=== PATIENT | male | born 1975 | race Two or more races ===

== ENCOUNTER 2016-11-20 08:59 | Inpatient (IN) | payer OTHER ==
[~2016-11-20] VITALS: Ht 188 cm; Wt 121.6 kg
[2016-11-20] MEDS ORDERED: DILANTIN PO (09:03)
[2016-11-20] MEDS ORDERED: KETOROLAC 30MG/ML VIAL IV STA (10:42)
[2016-11-20 10:51] LABS: BASOPHILS % 0.3 % (0.0-2.0); EOSINOPHILS % 2.3 % (0.0-5.0); HEMATOCRIT. 45.2 % (42.0-52.0); MEAN CORPUSCULAR HEMOGLOBIN 29.6 pg (28.0-32.0); MEAN CORPUSCULAR VOLUME 88.9 fL (80.0-94.0); MEAN PLATELET VOLUME 10.1 fl (7.4-10.4); MONOCYTES % 6.8 % (2.0-8.0); NEUTROPHILS % 58.6 % (40.0-76.0); PLATELET 254 x1000/uL (130-400); RED BLOOD CELL COUNT 5.08 mill/uL (4.7-6.1); RED CELL DISTRIBUTION WIDTH 14.2 % (11.6-14.6)
[2016-11-20 11:06] LABS: D-DIMER 0.53 mg/L FEU (<0.50); INR 1.1; PARTIAL THROMBOPLASTIN TIME 26.6 sec (23.4-31.0); PROTHROMBIN TIME 11.1 sec (9.4-11.6)
[2016-11-20] MEDS ORDERED: IOHEXOL-350 100 ML BOTTLE ONE (11:08)
[2016-11-20] MEDS ORDERED: SODIUM CHLORIDE 0.9% 10ML VIAL ONE (11:08)
[2016-11-20 11:12] LABS: CARBON DIOXIDE 30 mEq/L (21-32); CHLORIDE 105 mEq/L (98-107); ETHANOL BLOOD < 10 mg/dL; TROPONIN I < 0.02 ng/mL (0.00-0.04)
[2016-11-20 11:17] LABS: *AMPHETAMINES SCREEN URINE NEGATIVE (NEGATIVE); *BARBITURATES SCREEN URINE PRESUMTIVE POSITIVE (NEGATIVE); *BENZODIAZEPINES SCREEN URINE NEGATIVE (NEGATIVE); *COCAINE SCREEN URINE NEGATIVE (NEGATIVE); CANNABINOID URINE SCREEN NEGATIVE (NEGATIVE); METHADONE URINE SCREEN NEGATIVE (NEGATIVE); OPIATES URINE SCREEN NEGATIVE (NEGATIVE); PHENCYCLIDINE URINE SCREEN NEGATIVE (NEGATIVE)
[2016-11-20 16:05] VITALS: BP 122/80
[2016-11-20] MEDS ORDERED: ONDANSETRON HCL 4MG/2ML VIAL IV PRN (16:15)
[2016-11-20] MEDS ORDERED: DOCUSATE SODIUM 100MG CAPSULE PO PRN (16:15)
[2016-11-20] MEDS ORDERED: ACETAMINOPHEN 325MG TABLET PO PRN (16:15)
[2016-11-20] MEDS ORDERED: PHEN100C4 PO (16:23)
[2016-11-20] MEDS ORDERED: SIMV40TA5 PO (16:24)
[2016-11-20] MEDS ORDERED: PRIM250T33 PO (16:24)
[2016-11-20] MEDS ORDERED: OMEP40CA34 PO (16:25)
[2016-11-20] MEDS ORDERED: MEDICATION NOT ON FORMULARY EA (Simvastatin 40 MG) PO SCH (17:00)
[2016-11-20] MEDS: PHENYTOIN SODIUM EXTENDED 100MG CAPSULE PO SCH (18:18)
[2016-11-20 20:00] VITALS: BP 133/81
[2016-11-20] MEDS: ENOXAPARIN 30MG/0.3ML SYR SUBCUT SCH (21:00)
[2016-11-20] MEDS: HYDROCODONE/ACETAMINOPHEN 5/325MG TABLET PO PRN (21:52)
[2016-11-20] MEDS: ATORVASTATIN CALCIUM 20MG TABLET PO SCH (21:59)
[2016-11-20 23:41] LABS: CREATINE KINASE 68 IU/L (39-308); TROPONIN I < 0.02 ng/mL (0.00-0.04)
[2016-11-21] VITALS (7 sets, daily range): BP systolic 101–130; BP diastolic 65–80
[2016-11-21 05:58] LABS: BASOPHILS % 0.3 % (0.0-2.0); EOSINOPHILS % 2.4 % (0.0-5.0); HEMATOCRIT. 41.6 % (42.0-52.0); HEMOGLOBIN. 14.1 g/dL (14.0-18.0); LYMPHOCYTES % 32.8 % (20.0-50.0); MEAN CORPUSCULAR HEMOGLOBIN 30.2 pg (28.0-32.0); MEAN CORPUSCULAR VOLUME 88.7 fL (80.0-94.0); MEAN PLATELET VOLUME 9.8 fl (7.4-10.4); MONOCYTES % 7.7 % (2.0-8.0); NEUTROPHILS % 56.8 % (40.0-76.0); PLATELET 226 x1000/uL (130-400); RED BLOOD CELL COUNT 4.69 mill/uL (4.7-6.1); RED CELL DISTRIBUTION WIDTH 14.1 % (11.6-14.6)
[2016-11-21 06:54] LABS: CHLORIDE 103 mEq/L (98-107)
[2016-11-21 07:05] LABS: CARBON DIOXIDE 25 mEq/L (21-32); CREATINE KINASE 62 IU/L (39-308); HDL CHOLESTEROL 37 mg/dL (40-59); LDL CHOLESTEROL 144 mg/dL (5-100); TROPONIN I < 0.02 ng/mL (0.00-0.04)
[2016-11-21] MEDS ORDERED: OMEPRAZOLE 20MG CAPSULE EXTENDED RELEASE PO SCH (07:40)
[2016-11-21] MEDS: HYDROCODONE/ACETAMINOPHEN 5/325MG TABLET PO PRN (08:23)
[2016-11-21] MEDS: ENOXAPARIN 30MG/0.3ML SYR SUBCUT SCH ×2 (08:24→20:57)
[2016-11-21] MEDS ORDERED: MEDICATION NOT ON FORMULARY EA (Omeprazole 40 MG) PO SCH (09:00)
[2016-11-21] MEDS ORDERED: PHENYTOIN SODIUM EXTENDED 100MG CAPSULE PO SCH (09:00)
[2016-11-21] MEDS ORDERED: ASPIRIN 81MG EC TABLET PO SCH (09:00)
[2016-11-21] MEDS ORDERED: DILANTIN 300 MG PO SCH (09:00)
[2016-11-21] MEDS ORDERED: PRIMIDONE 250 MG TABLET PO SCH (09:00)
[2016-11-21] MEDS: ONDANSETRON HCL 4MG/2ML VIAL IV PRN ×2 (14:58→18:37)
[2016-11-21] MEDS: PHENYTOIN SODIUM EXTENDED 100MG CAPSULE PO SCH (18:37)
[2016-11-21] MEDS: ATORVASTATIN CALCIUM 20MG TABLET PO SCH (20:55)
[2016-11-21] MEDS ORDERED: METOCLOPRAMIDE HCL 10MG/2ML VIAL IV NR (21:00)
== END 2016-11-21 21:45 | disposition short-term general hospital (02) | DRG 293 ==
LOC: ER 09:21 → ENRESERV 13:42 → 7WST 15:07
PROVIDERS: ADMIT Hospitalist; ATTEND Hospitalist
DX: I50.9 Heart failure, unspecified (principal); E78.5 Hyperlipidemia, unspecified; G40.909 Epilepsy, unspecified, not intractable, without status epilepticus; R10.9 Unspecified abdominal pain; Z79.899 Other long term (current) drug therapy
CPT/HCPCS: 36415; 71010; 71275; 80053; 80061; 80305; 82550; 83880; 84484; 85025; 85379; 85610; 85730; 93005; 93306; 93970; 96374; 99285; A4216; G0482; J1650; J1885; J2405; J2765; Q9967